=== PATIENT | female | born 1975 | race Caucasian/White ===

== ENCOUNTER 2018-12-04 08:00 | Outpatient (RCR) ==
[2013-05-23 23:07] VITALS: BMI 31.7
--- NOTE | 2018-11-22 16:37 | RS.OPPTEV2 ---
Date of Note: 11/22/18 Visit #: 1 Number of visits approved by Insurance: n/a Date of Evaluation: 11/22/18 Payer Source: Insurance Date of Onset/Injury/Change in Status: 11/15/18 Surgery Performed?: No Treatment Diagnosis: patellar instability of R knee History of Condition/Mechanism of Injury:: pt reports that she was squatting at work and knee cap "popped" out of place and when stood "popped" back in. She states ortho MD gave her a brace to help keep patella "in track" Prior Level of Function.....Patient was independent with: ADL's, Self Care, Work /Vocation, Caregiving, Ambulation/Mobility, Community Integration/Access Functional Limitations: Bending, Squatting, Ambulation, Community Access/ Integration Current Subjective/complaints:: pt states that she was able to return to work but was unable to squat to reach under tables. She reports that she is still having swelling in R knee and pain in R lat knee. Treatment Side (optional): Right *Precautions: n/a Medical History Medical History: Unremarkable Surgical History Comments:: R knee meniscus repair 1993, L ankle sx, gastric bypass 01/2008 Smoking Status: Never smoker Hx Home Medications: diclofenac Patient's Goals: improve patellar stability. Pain Assessment - Pain Description Pain Location: R knee Pain Description: Aching Current Pain Intensity: 1/10 Functional Outcome Measure LE Functional Scale: 56 - G Codes & Severity Modifier G Codes & Modifier: n/a Source of G Code score: n/a Observation - Observation Inspection: pt with edema noted in R lat knee Posture: Forward Head, Rounded Shoulders Handedness: Right Gait - Gait Pattern General Gait Pattern Observation: Antalgic Gait Gait Comments: pt amb with slight antalgic gait pattern. General Range of Motion: BUE WFL's. LLE WFL's. RLE hip and ankle WFL's Muscle Strength: BUE 5/5. LLE 5/5. RLE hip flex 5/5, ankle DF/PF 5/5 Knee ROM: Left WFL's Knee Muscle Strength: Left WFL's - Right Knee ROM Right Knee Extension: -4 Right Knee Flexion: 118 Knee ROM Limitations: Soft Tissue Tightness, Muscle Weakness - Right Knee Strength Right Knee Extension: 3+ Fair+ Right Knee Flexion: 4- Good- - Special Tests Knee Anterior Drawer Test: Negative Right Knee Posterior Drawer Test: Negative Right Knee Valgus Stress Test: Positive Right Knee Varus Stress Test: Negative Right Patella Apprehension Test: Positive Right Palpation Palpation Findings: Tenderness Comments:: tenderness noted in R lat knee Sensation - Sensation Right Upper Extremity: Intact/Normal Left Upper Extremity: Intact/Normal Right Lower Extremity: Intact/Normal Left Lower Extremity: Intact/Normal Balance - Sitting Balance Static Sitting Balance: Normal Dynamic Sitting Balance: Normal - Standing Balance Static Standing Balance: Normal Dynamic Standing Balance: Normal Interventions - Exercise/Activities/Manual Therapy Exercises/Activities: Placed kinesiotape on R lat patella to improve patellar tracking. pt performed RLE QS, SAQ, SLR, SLR with VMO x 5 reps. Manual Therapy: n/a HOME EXERCISE PROGRAM: pt given written HEP including QS, SAQ, SLR, SLR with VMO - Charges Timed Code Treatment Minutes: 57 Total Treatment Time: 61 Procedures billed for this date of service:: eval low, ex EVALUATION COMPLEXITY LEVEL EVALUATION COMPLEXITY LEVEL: HISTORY: Low, EXAM OF BODY SYSTEMS: Low (ROM, strength), CLINICAL PRESENTATION: Low, CLINICAL DECISION MAKING: Low Assessment Assessment: pt presents with R knee effusion, slight decreased ROM as well as decreased strength. Lateral R patella instability causing pain in R knee. Patient Education: Home Exercise Program, Education of Plan of Care Rehab Potential: Good Short Term Goals Goal #1: pt independent with initial HEP Goal to be met by: 12/06/18 Goal #2: Improved R knee ext 0 Goal to be met by: 12/06/18 Goal #3: Improved R knee strength flex/ext 4 to 4+/5 Goal to be met by: 12/06/18 Goal #4: pt with decreased edema R knee equal to L knee Goal to be met by: 12/06/18 [employer] Goals Goal #1: pt report ability to return to normal daily/work activities Goal to be met by: 12/13/18 Goal #2: Improved R patellar tracking, pt independent with kinesiotaping Goal to be met by: 12/13/18 Goal #3: No reports of pain R knee Goal to be met by: 12/13/18 Plan - Treatment to be Provided Procedures: Therapeutic Exercises, Therapeutic Activity, Patient Education Modalities: Electrical Stimulation, Ultrasound/Phonophoresis, Cryotherapy, Hot Packs - Treatment Plan Frequency: 2-3x a week Duration: 3 weeks Dates of Group Home Goals: 12/13/18 Expiration date of current Insurance Approval:: n/a - Treatment Code (1) Right knee pain Code(s): M25.561 - PAIN IN RIGHT KNEE Qualifiers: Chronicity: acute Qualified Code(s): M25.561 - Pain in right knee (2) Patellar instability of right knee Code(s): M25.361 - OTHER INSTABILITY, RIGHT KNEE (3) Effusion of right knee joint Code(s): M25.461 - EFFUSION, RIGHT KNEE (4) Muscle weakness Code(s): M62.81 - MUSCLE WEAKNESS (GENERALIZED)
--- NOTE | 2018-11-25 12:03 | RS.OPPTDN ---
Subjective Date of Note: 11/25/18 Visit #: 2 Number of visits approved by Insurance: NA Date of Evaluation: 11/22/18 Payer Source: Insurance Treatment Diagnosis: patellar instability of R knee Current Subjective/complaints:: Patient reports soreness ,but no pain in the R knee. *Precautions: n/a Pain Assessment - Pain Description Pain Location: R knee Pain Description: soreness Current Pain Intensity: 0 Interventions - Exercise/Activities/Manual Therapy Exercises/Activities: Placed kinesiotape on R lat patella to improve patellar tracking. 40 mins. ,3/15 each QS, SAQ, SLR, SLR with VMO.L side lying hip flexor stretches at end of session . Total minutes of Exercise: 40 Manual Therapy: n/a Total minutes of Manual Therapy: 0 HOME EXERCISE PROGRAM: pt given written HEP including QS, SAQ, SLR, SLR with VMO - Charges Timed Code Treatment Minutes: 40 Total Treatment Time: 40 Procedures billed for this date of service:: ex 3 Assessment: Patient has functional ROM in the R knee.She reports stretch discomfort with R hip flexor stretches at end range ,but no pain present ni the knee while doing exercises.She is very attentive and motivated to improve. Patient Education: Education of diagnosis, Body/Joint mechanics, Home Exercise Program, Home Safety, Activity Modification, Education of Plan of Care Patient demonstrates compliance with HEP?: Yes Short Term Goals Goal #1: pt independent with initial HEP Goal to be met by: 12/06/18 Progress towards Goal:: Progressing Goal #2: Improved R knee ext 0 Goal to be met by: 12/06/18 Progress towards Goal:: Progressing Goal #3: Improved R knee strength flex/ext 4 to 4+/5 Goal to be met by: 12/06/18 Goal #4: pt with decreased edema R knee equal to L knee Goal to be met by: 12/06/18 [employer] Estate [employer] Goals Goal #1: pt report ability to return to normal daily/work activities Goal to be met by: 12/13/18 Progress towards goal: Progressing Goal #2: Improved R patellar tracking, pt independent with kinesiotaping Goal to be met by: 12/13/18 Goal #3: No reports of pain R knee Goal to be met by: 12/13/18 Plan Dates of Commercial Real Estate Broker Goals: 12/13/18 Expiration date of current Insurance Approval:: NA PLAN: Cont. skilled PT to return the R knee to PLOF,no pain with all ADL's.
--- NOTE | 2018-11-29 11:09 | RS.OPPTDN ---
Subjective Date of Note: 11/29/18 Visit #: 3 Number of visits approved by Insurance: NA Date of Evaluation: 11/22/18 Payer Source: Insurance Treatment Diagnosis: patellar instability of R knee Current Subjective/complaints:: Patient reports the R knee aches today,but no sharp pain currently. *Precautions: n/a Pain Assessment - Pain Description Pain Location: R knee Pain Description: Dull, Aching Current Pain Intensity: not rated - Treatment Modality: Ultrasound Parameters/Method Applied: 10 mins. @ 1.5 w/cm2 ,continuous mode to R knee Lateral aspect of patella Interventions - Exercise/Activities/Manual Therapy Exercises/Activities: Supervising PT placed kinesiotape on R lat patella to improve patellar tracking at end of treatment 20 mins. ,/ each QS, SAQ, SLR , SLR with VMO.Patellar mobs. at end of session prior to taping. Total minutes of Exercise: 20 Manual Therapy: n/a Total minutes of Manual Therapy: 0 HOME EXERCISE PROGRAM: pt given written HEP including QS, SAQ, SLR, SLR with VMO - Charges Timed Code Treatment Minutes: 30 Total Treatment Time: 30 Procedures billed for this date of service:: US,ex 1 Assessment: Patient reports muscle fatigue in the R thigh ,especially with eccentric motions today ,but no elevated knee pain .She is tender to palpate the R upper aspect of the patella. Patient Education: Education of diagnosis, Body/Joint mechanics, Home Exercise Program, Home Safety, Activity Modification, Education of Plan of Care Patient demonstrates compliance with HEP?: Yes Short Term Goals Goal #1: pt independent with initial HEP Goal to be met by: 12/06/18 Progress towards Goal:: Progressing Goal #2: Improved R knee ext 0 Goal to be met by: 12/06/18 Progress towards Goal:: Met Goal #3: Improved R knee strength flex/ext 4 to 4+/5 Goal to be met by: 12/06/18 Progress towards Goal:: Progressing Goal #4: pt with decreased edema R knee equal to L knee Goal to be met by: 12/06/18 Progress towards Goal:: Progressing Shelter Goals Goal #1: pt report ability to return to normal daily/work activities Goal to be met by: 12/13/18 Progress towards goal: Progressing Goal #2: Improved R patellar tracking, pt independent with kinesiotaping Goal to be met by: 12/13/18 Goal #3: No reports of pain R knee Goal to be met by: 12/13/18 Progress towards goal: Progressing Plan Dates of Shelter Goals: 12/13/18 Expiration date of current Insurance Approval:: NA PLAN: Cont. skilled PT to reduce R knee pain ,educate patient on strengthening exercises to reduce risks of patellar dislocation.
--- NOTE | 2018-12-04 09:13 | RS.OPPTDN ---
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 tomorrow at [facility] [place], [place] *Precautions: n/a Pain Assessment - Pain Description Pain Location: R knee Pain Description: Dull, Aching Current Pain Intensity: not rated Other Comments regarding Pain:: less tender to palpate Interventions - Exercise/Activities/Manual Therapy Exercises/Activities: Supervising PT placed kinesiotape on R lat patella to improve patellar tracking at end of treatment 25 mins. ,3/15 each QS, SAQ, SLR , SLR with VMO.Patellar mobs. at end of session prior to taping,along with teaching patient to do the patellar mobs. Total minutes of Exercise: 25 Manual Therapy: n/a Total minutes of Manual Therapy: 0 HOME EXERCISE PROGRAM: pt given written HEP including QS, SAQ, SLR, SLR with VMO - Charges Timed Code Treatment Minutes: 25 Total Treatment Time: 25 Procedures billed for this date of service:: ex 2 Assessment: Patient progressing ,is less tender to palpate the lateral aspect of the R knee.She fatigues easily with eccentric control doing SLR's.She also has increased aching with doing SLR with ER of the R LE ( VMO ). Patient Education: Education of diagnosis, Body/Joint mechanics, Home Exercise Program, Home Safety, Activity Modification, Education of Plan of Care Patient demonstrates compliance with HEP?: Yes Short Term Goals Goal #1: pt independent with initial HEP Goal to be met by: 12/06/18 Progress towards Goal:: Progressing Goal #2: Improved R knee ext 0 Goal to be met by: 12/06/18 Progress towards Goal:: Met Goal #3: Improved R knee strength flex/ext 4 to 4+/5 Goal to be met by: 12/06/18 Progress towards Goal:: Progressing Goal #4: pt with decreased edema R knee equal to L knee Goal to be met by: 12/06/18 Progress towards Goal:: Progressing [employer] Goals Goal #1: pt report ability to return to normal daily/work activities Goal to be met by: 12/13/18 Progress towards goal: Progressing Goal #2: Improved R patellar tracking, pt independent with kinesiotaping Goal to be met by: 12/13/18 Progress towards goal: Progressing Goal #3: No reports of pain R knee Goal to be met by: 12/13/18 Progress towards goal: Progressing Plan Dates of Ad[employer] Job [employer] Goals: 12/13/18 Expiration date of current Insurance Approval:: na PLAN: Cont. skilled PT to strengthen the R LE,independently tape the knee when necessary.
--- NOTE | 2018-12-06 08:38 | RS.CXNS ---
Date of scheduled appointment: 12/06/18 Type: Cancel Reason for Cancel/NS: Called ,no reason given.
== END 2018-12-12 23:59 ==
PROVIDERS: ATTEND Orthopaedic Surgery
DX: M25.361 Other instability, right knee (principal)